=== PATIENT | female | born 1995 | race Caucasian/White ===

== ENCOUNTER 2022-11-16 01:10 | Emergency (ER) | payer MEDICAID, SELFPAY ==
[2022-11-16 01:13] VITALS: BP 130/80; PULSE 90; RESP 18; TEMP 36.8; O2SAT 98; BMI 39.9
--- NOTE | 2022-11-16 01:16 | ECG_ITS ---
Test Reason : CHEST PAIN Blood Pressure : / mmHG Vent. Rate : 075 BPM Atrial Rate : 075 BPM P-R Int : 170 ms QRS Dur : 078 ms QT Int : 384 ms P-R-T Axes : 052 010 032 degrees QTc Int : 428 ms Normal sinus rhythm Normal ECG No previous ECGs available Referred By: Generic ED Physician Electronically Signed By:LINO RICHARDSON MD
--- NOTE | 2022-11-16 01:27 | ED.CHESTPAIN ---
HPI - Chest Pain General Chief Complaint: Chest Pain Stated Complaint: Chest pain/ dizziness Time Seen by Provider: 11/16/22 01:27 Source: patient Mode of arrival: ambulatory Limitations: no limitations History of Present Illness HPI narrative: 27-year-old female who presents emergency department for evaluation of sudden onset of chest tightness. The patient states that she was getting her 4-month-old baby ready to go to bed when she had a sudden onset of chest pain. She points to the center of her chest. She describes as a tightness. The pain was 5/10 at its worst. Patient states that she had intermittent dizziness which she describes as room spinning. She states the pain is been constant since onset and is now 2/10. The patient states this is 1st episode of this type of pain. The pain does radiate to her back. She denies diaphoresis, nausea, vomiting, shortness of breath or dyspnea on exertion. The patient is x4 months. She is on estrogen control pills. She states that she drove to [place] over the weekend which was approximately 1-1/2 hour trip. She has not had any pain or swelling in her lower or upper extremities but she states that when the pain started she felt like the veins in her upper extremities or popping out. 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 Social history: She denies tobacco, alcohol and drug use. Social History Social History Alcohol intake: never Physical Exam Vital Signs: Vital Signs: Last Vital Signs Temp 98.3 F 11/16/22 01:13 Pulse 90 11/16/22 01:13 Resp 18 11/16/22 01:13 BP 130/80 11/16/22 01:13 Pulse Ox 98 11/16/22 01:13 O2 Del Method Room Air 11/16/22 01:13 BMI result Body Mass Index 39.9 Const: General: cooperative and no acute distress Orientation/consciousness: oriented to person and oriented to place Limitations: no limitations HEENT: Head: Yes normal to inspection, Yes normocephalic and Yes atraumatic Ears: external ears normal General nose exam: Normal external nose present Face and sinus: Yes normal facial exam Mouth: Normal oral and palatal mucosa present Throat: Yes posterior oropharynx normal Eyes: General: appearance normal, both eyes and all related structures Pupils: Equal, round and reactive pupils present Neck: Neck: Yes normal visual inspection, Yes no lymphadenopathy, Yes trachea midline and Yes supple Chest: Chest palpation & inspection: normal inspection of the chest and normal palpation of entire chest wall Resp: Effort & Inspection: normal respiratory effort and able to speak in complete sentences Auscultation: clear to auscultation bilaterally Cardio: Rate: regular rate Rhythm: regular rhythm Heart sounds: S1 normal heart sound present, S2 normal heart sound present and Murmur heart sound present continuous III/ GI: Inspection: Yes normal to inspection Palpation (GI): Soft to palpation, nontender and no guarding Auscultation: normal bowel sounds : General: Yes no CVA tenderness Back/Spine/Pelvis: Back: no CVA tenderness Skin: General skin exam: no rashes or lesions noted Neuro: General: oriented to person and oriented to place Cranial nerves: Yes CN's II-XII intact bilaterally and Yes Equal, round and reactive pupils present Cognition (Neuro): normal cognition Motor exam (neuro): 5/5 motor strength present throughout Extrem: General: Yes normal to inspection Psych: Appearance: grossly normal Speech and movement: Normal speech and movement present Affect: normal affect Attitude: cooperative Thought process: Normal thought process present Thought content: Normal thought content present Medical Decision Making Medical Decision Making MDM Narrative: 27-year-old female x4 months, on estrogen control pills who presents emergency department for evaluation of sudden onset of sternal chest tightness associated with dizziness with onset at 00:30 hours. Patient's vital signs were normal. Physical examination did reveal a continuous heart murmur, patient believes that she may have a VSD but I do not have an echocardiogram on the patient. Patient's extremities were unremarkable. I ordered a CBC, BMP, liver panel, PT/INR, PTT, troponin, EKG. The patient is PERC positive therefore I ordered a D-dimer. Patient's pain was treated with Toradol 15 mg IV I also ordered normal saline IV x1 L. At the end of my shift, the patient's laboratory evaluation is pending therefore the patient's care was turned over to my colleague, Dr. Mendoza. Differential Diagnosis Differential diagnosis includes but is not limited to myocardial infarction, myocardial ischemia, pulmonary embolism, costochondritis, anxiety Admission/Observation Consideration of admission/observation: Escalation of care including admission/observation considered Discharge Plan Discharge Clinical Impression: Chest pain Patient Disposition: Still a Patient
[2022-11-16 01:28] VITALS: BP 104/64; PULSE 80; PULSE 88; RESP 17; TEMP 36.5; O2SAT 96
[2022-11-16 01:53] LABS: Basophils Percent Auto 0.5 % (0-2); Eosinophils Absolute Auto 0.1 X10*3/uL (0.0-0.4); Eosinophils Percent Auto 2.1 % (0-4); Hematocrit 38.6 % (37.0-47.0); Hemoglobin 12.8 g/dl (12.0-16.0); Lymphocytes Absolute Auto 2.6 X10*3/uL (1.2-4.9); Lymphocytes Percent Auto 42.8 % (20-40); MANUAL DIFF FLAG NO; Mean Corpuscular HGB Conc 33.2 g/dl (31.0-35.0); Mean Corpuscular Hemoglobin 27.2 pg (27.0-33.0); Mean Platelet Volume 9.1 fL (9.4-12.3); Monocytes Absolute Auto 0.5 X10*3/uL (0.1-1.2); Monocytes Percent Auto 8.6 % (2-11); Neutrophils Absolute Auto 2.8 x10*3/uL (2.0-8.3); Platelet Count 298 X10*3/uL (160-400); Red Blood Count 4.71 X10*6/uL (4.20-5.50); Red Cell Distribution Width 13.4 % (11.0-16.0); White Blood Count 6.2 X10*3/uL (4.8-10.8)
[2022-11-16] MEDS: 0.9 % Sodium Chloride 1,000 ML 999 ML IV (01:55)
[2022-11-16] MEDS: Ketorolac Tromethamine 15 MG/ML VIAL IVPUSH (01:56)
[2022-11-16 01:59] LABS: Prothrombin Time 11.7 SEC (10.0-13.1)
[2022-11-16 02:00] VITALS: BP 112/62; PULSE 77; RESP 14; O2SAT 98
[2022-11-16 02:01] LABS: D Dimer High Sensitivity 192 NG/ML; Partial Thromboplastin Time 33.5 SEC (26.0-36.4)
[2022-11-16 02:09] LABS: Anion Gap 13 (12-20); Blood Urea Nitrogen 13 mg/dL (9-16); Calcium 9.7 mg/dL (8.4-10.2); Carbon Dioxide 23 mmol/L (22-29); Chloride 108 mmol/L (96-108); Creatinine Clr Calc Pharmacy 128.5; Estimated Glomerular Filt Rate > 60; Glucose Random 99 mg/dL (60-115); Potassium 3.8 mmol/L (3.3-5.1); Sodium 140 mmol/L (135-145)
[2022-11-16 02:10] LABS: Alanine Aminotransferase 12 U/L (0-31); Albumin Level 4.1 g/dL (3.5-5.0); Alkaline Phosphatase 101 U/L (39-117); Aspartate Amino Transferase 17 U/L (5-31); Bilirubin Direct 0.2 mg/dL (0.0-0.5); Bilirubin Total 0.6 mg/dL (0.0-1.0); Total Protein 7.2 g/dL (6.5-8.0)
[2022-11-16 02:17] LABS: Troponin-I High Sensitivity < 2.7 ng/L (<3.5-17.0)
== END 2022-11-16 02:58 | disposition home or self-care (01) ==
PROVIDERS: Emergency Provider Emergency Medicine Emergency Medical Services
DX: R07.89 Other chest pain (principal); R42 Dizziness and giddiness; Z79.899 Other long term (current) drug therapy
CPT/HCPCS: 36415; 80048; 80076; 84484; 85025; 85379; 85610; 85730; 93005; 96374; 99284; 99285; J1885

== ENCOUNTER 2023-01-08 17:53 | Emergency (ER) | payer MEDICAID, SELFPAY ==
--- NOTE | ~2023-01-08 | XR_ITS ---
EXAMINATION: XR SHOULDER, RIGHT CLINICAL INFORMATION: Pain COMPARISON: None available. TECHNIQUE: AP external rotation, Grashey, scapular Y, and axillary views of the right shoulder. FINDINGS: The bones and soft tissues are normal. No fracture. Glenohumeral and acromioclavicular alignment is anatomic with normal joint space. No abnormal soft tissue calcifications. XR/XR shoulder RT min 2V IMPRESSION: Normal right shoulder.
[2023-01-08 18:35] VITALS: BP 149/83; PULSE 89; RESP 16; TEMP 36.8; O2SAT 96; BMI 40.7
--- NOTE | 2023-01-08 18:36 | ED_ITS ---
HPI - Extremity Injury (Upper) General Chief Complaint: Back Pain/Injury Stated Complaint: R shoulder pain Time Seen by Provider: 01/08/23 19:25 Source: patient and family () Mode of arrival: ambulatory Limitations: no limitations History of Present Illness HPI narrative: 27-year-old female who presents emergency department for evaluation of right scapular shoulder pain. The patient states that 5 months prior she was putting her baby in a bassinet when she developed a rubber band snapping like sensation in her right scapular area. She states that since that time she has every 2 weeks she would have pain in her right posterior shoulder/scapular area which she describes as a snapping/electric shock pain. She states that over the past 2 weeks however the pain is become constant and she now has pain that radiates down her right arm . She states that the right arm pain is a tingling sensation with some mild weakness of her arm. Patient states that her PCP is referred her to physical therapy which she is going to start on 01/17/2023. The patient has been taking ibuprofen and Tylenol with some relief for pain. 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 Social history: She denies tobacco, alcohol and drug use. Social History Social History Alcohol intake: never Advance Directives: No Advance Directives Information Provided: Yes Physical Exam Vital Signs: Vital Signs: Last Vital Signs Temp 98.2 F 01/08/23 18:35 Pulse 89 01/08/23 18:35 Resp 16 01/08/23 18:35 BP 149/83 H 08/08/23 18:35 Pulse Ox 96 01/08/23 18:35 O2 Del Method Room Air 01/08/23 18:35 BMI result Body Mass Index 40.7 Vital signs revealed an elevated blood pressure of 149/83 General: Awake, alert in no distress Head: Normocephalic, atraumatic EENT: PERRL, Lids normal, sclera normal, conjunctiva normal, nose normal , ears normal, throat without erythema or exudates Neck: Supple, no adenopathy, trachea midline and nontender, tenderness palpation of the right trapezius muscle Lung: breath sounds symmetric, no wheezing, rales or rhonchi Heart: regular rate and rhythm, normal S1, S2 no murmurs or rubs Extremities: Patient has tenderness palpation of the right deltoid muscle, she also has tenderness palpation of the muscles over the right shoulder blade. She has full range of motion passively with only minimal pain but has increased range of motion with adduction abduction against resistance with less pain with internal external rotation against resistance, her extremities neurovascular intact Skin: no rashes, no lesion, normal color and warmth over the area pain on her right shoulder blade Neuro: Awake, alert, oriented, normal speech, cranial nerves intact, moves all extremities symmetrically Psych: Pleasant, cooperative Course Course Course Narrative: RME - 27 yo right hand dominant female presents to the ER for evaluation of right posterior shoulder pain for the last 5 months. Started while putting her baby down 5 months ago. Described as rubber band snapping sensation that occurs now daily and now radiates down the back into the arm, causing pain and numbness . Has limited ROM and difficulty performing ADLs. Minimal relief with tylenol and ibuprofen. Plan: XR shoulder Medical Decision Making Medical Decision Making [facility] Narrative: 27-year-old female who presents emergency department for evaluation of right neck, right shoulder and right shoulder blade pain x5 months, pain initially occurred after she sat her baby down in a bassinet and describes the pain is a rubber band snapping like sensation. Since that time she had intermittent pain. Over the past 2 weeks however the pain is been constant and now she has pain that radiates down her right arm with weakness of her right arm. The patient's examination did reveal tenderness with palpation of the right trapezius, deltoid and muscles over the right shoulder blade. The pain is worse with adduction and abduction against resistance. Patient's findings are consistent with a tendon injury with tendinitis causing inflammation around the nerves and radicular pain down the right arm. The patient was started on prednisone 40 mg once a day for 7 days and advised to continue taking Tylenol as well for pain. She was advised to apply ice for 15 minutes and then follow this with he for 15 minutes 4 to 6 times a day for the next 3-4 days. She was given printed and verbal instructions and discharged home. Differential Diagnosis Differential Diagnoses: The differential diagnosis associated with the presentation includes Differential diagnosis includes was not limited to bone injury, muscle injury, tendon injury, radicular pain Radiology Impression Discussion of test interpretation with radiology: I have reviewed the radiologist's reading. Radiologist Impression: XR shoulder RT min 2V IMPRESSION: Normal right shoulder. Dictated By:Bryson Franco MD Independent Historian Clinical information obtained from an independent historian. History obtained from or confirmed by: Spouse Chronic Conditions Patient?s care impacted by: Other (Fibromyalgia) Discharge Plan Discharge Clinical Impression: Right shoulder tendinitis Radiculopathy Qualifiers: Spinal region: unspecified Qualified Code(s): M54.10 - Radiculopathy, site unspecified Patient Disposition: Home, Self-Care Instructions: Tendinitis (ED) Additional Instructions: You most likely injured a tendon of your right shoulder /shoulder blade and you now have inflammation of this tendon (this is called tendinitis) Take prednisone 20 mg pills, 2 pills once a day for 7 days. While you are taking prednisone, do not take any NSAIDs (Motrin, Advil, ibuprofen, Aleve, naproxen). While you are taking prednisone you can also take Tylenol 325 mg pills, 2 pills every 6 hours as needed for pain. Apply ice to to right neck, shoulder and shoulder blade were your having the pain for 15 minutes. After approximately 20 minutes then apply a heating pad on low for 15 minutes. Try to do this 4 times a day to see if this reduces your pain. After you finish the prednisone you can go back to taking ibuprofen 200 mg pills, 2 pills every 6 hours as needed for pain. Physical therapy may help with stretching and strengthening exercises to reduce your pain. Follow-up with your doctor in 2 days. Please return to the emergency department if your symptoms get worse or if you develop any symptoms that are concerning to you. Prescriptions: New prednisone 20 mg tablet 40 mg PO DAILY 7 Days Qty: 14 0RF No Action ibuprofen 600 mg tablet 600 mg PO Q6H PRN (Reason: fever or pain) Qty: 30 0RF
[2023-01-08] MEDS: predniSONE 20 MG TABLET 40 MG PO (20:07)
[2023-01-08 20:15] VITALS: BP 120/59; PULSE 75; RESP 18; O2SAT 97
== END 2023-01-08 20:20 | disposition home or self-care (01) ==
PROVIDERS: Emergency Provider Emergency Medicine Emergency Medical Services; PCP Physician Assistant
DX: M75.31 Calcific tendinitis of right shoulder (principal); M54.10 Radiculopathy, site unspecified; M79.7 Fibromyalgia
CPT/HCPCS: 73030; 99283; 99284

== ENCOUNTER 2023-11-16 10:02 | Emergency (ER) | payer MEDICAID, SELFPAY ==
--- NOTE | ~2023-11-16 | XR_ITS ---
EXAMINATION: XR TOES, LEFT CLINICAL INFORMATION: Left great toe pain/injury. COMPARISON: None available. TECHNIQUE: 3 views of the left toes were obtained. FINDINGS: No fracture or subluxation. No discrete focal erosive changes, cortical disruption or focal lucency to suspect osteomyelitis by radiograph. Diffuse nonspecific soft tissue swelling. No unexpected radiopaque foreign bodies. XR/XR toe LT min 2V IMPRESSION: Diffuse soft tissue swelling. No acute osseous findings.
[2023-11-16 10:15] VITALS: BP 138/62; PULSE 84; RESP 16; TEMP 37; O2SAT 98; BMI 38.3
--- NOTE | 2023-11-16 10:23 | ED.LOWEXIN ---
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 States toe bent backwards, and her body weight landed on foot. Has been minimally ambulatory since the incident secondary to pain. Denies head trauma or LOC, numbness, tingling, weakness. 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 Difficulty Uncoded 11/16/22 01:17 Breathing Review of Systems Review of Systems: Constitutional: No Fever, No Chills ENT/Mouth: No Ear Pain, No Nasal Congestion, No sore throat, No Rhinorrhea, No Swallowing Difficulty Cardiovascular: No Chest Pain, No SOB Respiratory: No Cough, No Sputum, No Wheezing Gastrointestinal: No Nausea, No Vomiting, No Diarrhea, No Constipation, No Abdominal pain Musculoskeletal: + joint pain, No Myalgias, +Joint Swelling Skin: No Skin Lesions, No rash Neuro: No Weakness, No Numbness, No Paresthesias, no head trauma, no LOC Yes all other systems are reviewed and are negative Constitutional: Constitutional: Reports as per [facility] Past Medical History Attestation statement: The following information was validated with the patient. Source: old records reviewed Social History Social History Alcohol intake: never Advance Directives: No Advance Directives Information Provided: Yes Physical Exam Vital Signs: Vital Signs: Last Vital Signs Temp 98.0 F 11/16/23 11:50 Pulse 71 11/16/23 11:50 Resp 16 11/16/23 11:50 BP 107/61 11/16/23 11:50 Pulse Ox 95 11/16/23 11:50 O2 Del Method Room Air 11/16/23 11:50 BMI result Body Mass Index 38.3 Const: General: cooperative, healthy appearing and no acute distress Orientation/consciousness: patient oriented x3 Limitations: no limitations HEENT: Head: Yes normal to inspection and Yes atraumatic Ears: hearing grossly normal bilaterally General nose exam: Normal external nose present Face and sinus: Yes normal facial exam Eyes: General: appearance normal, both eyes and all related structures EOM: EOMs intact bilaterally Neck: Neck: Yes normal visual inspection and Yes no meningeal signs Resp: Effort & Inspection: normal respiratory effort and no respiratory distress Cardio: Rate: regular rate Skin: Rashes: no rashes Wounds: no wounds Neuro: General: patient oriented x3, tone normal and no meningeal signs Cranial nerves: Yes CN's II-XII intact bilaterally Gait exam (Neuro): Normal gait present Extrem: Other: Left foot: Dorsal aspect with appreciable swelling and diffuse tenderness > great toe. Limited ROM of great toe secondary to pain. No ecchymosis/erythema. Neurovascularly intact. Ankle/tib-fib and knee nontender Course Course Course Narrative: 1107--XR toe LT min 2V IMPRESSION: Diffuse soft tissue swelling. No acute osseous findings. >AYAN wrap applied. Results discussed with patient including worrisome signs and symptoms and strict return precautions, and when to return to the emergency department. They verbalized understanding and feel safe for discharge at this time. 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 On exam vital signs stable, NAD, nontoxic appearing, physical exam as noted above. Concern for fracture vs sprain. Lower suspicion for dislocation. No evidence of infection plan: X-rays, pain control Please refer to course for remaining clinical decision making, interpretation of labs/imaging results, and discussions with consultants and/or family members. Differential Diagnosis Differential Diagnoses: The differential diagnosis associated with the presentation includes As above Independent Interpretation I performed an independent interpretation of an: Plain X-Ray Radiology Impression Discussion of test interpretation with radiology: I have reviewed the radiologist's reading. External Record Review External record reviewed: Inpatient record, Office record, Outpatient record, Prior outpatient labs, Prior outpatient radiology, Primary care record and Outside ED record Tests considered The following testing was considered but not selected: As above Prescription Management I considered prescription management with: Pain Medication Discharge Plan Discharge Clinical Impression: Hyperextension of great toe, Foot sprain Patient Disposition: Home, Self-Care Instructions: Foot Sprain (ED) Additional Instructions: Your x-rays do not show a fracture/break Ice and elevate your foot Wear Ayan wrap for compression Take Tylenol and Motrin for pain/swelling Follow-up with your doctor If pain persist or worsen/becomes unbearable return to the ED Prescriptions: No Action ibuprofen 600 mg tablet 600 mg PO Q6H PRN (Reason: fever or pain) Qty: 30 0RF prednisone 20 mg tablet 40 mg PO DAILY 7 Days Qty: 14 0RF Referrals: [facility] [Provider Group] (as needed) Physician,Unknown J [Primary Care Provider] - Interventions: ED Discharge Assessment Last Done: 11/16/23 11:50 Discharge Date/Time: 11/16/23 11:51 Print Language: Slovak
[2023-11-16] MEDS: Ibuprofen 800 MG TABLET PO (10:41)
[2023-11-16 11:50] VITALS: BP 107/61; PULSE 71; RESP 16; TEMP 36.7; O2SAT 95
== END 2023-11-16 11:51 | disposition home or self-care (01) ==
PROVIDERS: Emergency Provider Emergency Medicine Emergency Medical Services
DX: S93.602A Unspecified sprain of left foot, initial encounter (principal); W01.0XXA Fall on same level from slipping, tripping and stumbling without subsequent striking against object, initial encounter; Y93.89 Activity, other specified; Y92.009 Unspecified place in unspecified non-institutional (private) residence as the place of occurrence of the external cause; Y99.9 Unspecified external cause status
CPT/HCPCS: 73660; 99283

== ENCOUNTER → 2025-01-06 00:56 | Outpatient (BNV) | payer MEDICAID, SELFPAY | PROVIDERS: Visit Provider Radiology Diagnostic Radiology | DX: R06.02 Shortness of breath (principal) | CPT/HCPCS: 71046 ==

== ENCOUNTER 2025-01-06 01:23 | Emergency (ER) | payer MEDICAID, SELFPAY ==
--- NOTE | 2025-01-06 | ECG_ITS ---
Test Reason : CP Blood Pressure : */* mmHG Vent. Rate : 77 BPM Atrial Rate : 77 BPM P-R Int : 150 ms QRS Dur : 76 ms QT Int : 372 ms P-R-T Axes : 51 9 36 degrees QTcB Int : 420 ms Normal sinus rhythm Normal ECG When compared with ECG of 16-Nov-2022 01:20, No significant change was found Referred By: Generic ED Physician Electronically Signed By: PATRICIA HERNANDEZ
--- NOTE | ~2025-01-06 | XR_ITS ---
CLINICAL HISTORY: chest pain, sob Chest X-ray, 2 Views COMPARISON: None provided FINDINGS: No consolidation. No pleural effusion. No pneumothorax. No cardiomegaly. No acute fracture. IMPRESSION: No acute findings. This document has been electronically signed by: Fahrat Hawthorne MD on 01/06/2025 02:31:09
[2025-01-06 01:25] VITALS: BP 133/79; PULSE 91; RESP 20; TEMP 36.7; O2SAT 100; BMI 37.4
[2025-01-06 01:54] LABS: Hematocrit 40.1 % (37.0-47.0); Hemoglobin 13.7 g/dl (12.0-16.0); Mean Corpuscular HGB Conc 34.2 g/dl (31.0-35.0); Mean Corpuscular Hemoglobin 27.8 pg (27.0-33.0); Mean Corpuscular Volume 81.3 fL (80.0-98.0); NRBC Abs Auto 0.000 X10*3/uL (0.0-0.012); NRBC Pct Auto 0.0 /100WBC (0.0-0.2); Platelet Count 313 X10*3/uL (160-400); Red Blood Count 4.93 X10*6/uL (4.20-5.50); White Blood Count 7.6 X10*3/uL (4.8-10.8)
[2025-01-06 02:11] LABS: Alanine Aminotransferase 17 U/L (0-31); Albumin Level 4.1 g/dL (3.5-5.0); Alkaline Phosphatase 99 U/L (39-117); Anion Gap 12 (12-20); Aspartate Amino Transferase 25 U/L (5-31); Blood Urea Nitrogen 11 mg/dL (9-16); Calcium 9.2 mg/dL (8.4-10.2); Carbon Dioxide 23 mmol/L (22-29); Chloride 109 mmol/L (96-108); Creatinine Clr Calc Pharmacy 107.4; Estimated Glomerular Filt Rate > 60; Magnesium 2.0 mg/dL (1.6-2.6); Potassium 3.9 mmol/L (3.3-5.1); Sodium 140 mmol/L (135-145); Total Protein 7.3 g/dL (6.5-8.0)
[2025-01-06 02:23] LABS: Troponin-I High Sensitivity < 2.7 ng/L (<3.5-17.0)
--- NOTE | 2025-01-06 02:23 | ED_ITS ---
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 Difficulty Uncoded 01/06/25 01:34 Breathing PMFSH Social History Social History Alcohol intake: never Advance Directives: No Advance Directives Information Provided: Yes Physical Exam 2 Vital Signs: Vital Signs: Last Vital Signs Temp 98.7 F 01/06/25 05:22 Pulse 69 01/06/25 05:22 Resp 14 01/06/25 05:22 BP 106/60 01/06/25 05:22 Pulse Ox 96 01/06/25 05:22 O2 Del Method Room Air 01/06/25 05:22 BMI result Body Mass Index 37.4 Medical Decision Making Lab Data 01/06/25 01:48 01/06/25 01:48 Labs: Lab Results 01/06/25 Range/Units 01:48 WBC 7.6 (4.8-10.8) X10*3/uL RBC 4.93 (4.20-5.50) X10*6/uL Hgb 13.7 (12.0-16.0) g/dl Hct 40.1 (37.0-47.0) % MCV 81.3 (80.0-98.0) fL MCH 27.8 (27.0-33.0) pg MCHC 34.2 (31.0-35.0) g/dl RDW 13.3 (11.0-16.0) % Plt Count 313 (160-400) X10*3/uL MPV 9.4 (9.4-12.3) fL Absolute Nucleated RBC 0.000 (0.0-0.012) X10*3/uL Nucleated RBC % (auto) 0.0 (0.0-0.2) /100WBC Sodium 140 (135-145) mmol/L Potassium 3.9 (3.3-5.1) mmol/L Chloride 109 H (96-108) mmol/L Carbon Dioxide 23 (22-29) mmol/L Anion Gap 12 (12-20) BUN 11 (9-16) mg/dL Creatinine 0.85 (0.5-1.4) mg/dL Estim Creat Clear Calc 107.4 Estimated GFR > 60 Random Glucose 119 H (60-115) mg/dL Calcium 9.2 (8.4-10.2) mg/dL Magnesium 2.0 (1.6-2.6) mg/dL Total Bilirubin 0.5 (0.0-1.0) mg/dL AST 25 (5-31) U/L ALT 17 (0-31) U/L Alkaline Phosphatase 99 (39-117) U/L Troponin I High Sens < 2.7 (<3.5-17.0) ng/L Total Protein 7.3 (6.5-8.0) g/dL Albumin 4.1 (3.5-5.0) g/dL Influenza Type A (PCR) NEGATIVE (Negative) Influenza Type B (PCR) NEGATIVE (Negative) RSV RNA Qual (PCR) NEGATIVE (Negative) SARS-CoV-2 RNA (RT-PCR) NEGATIVE (Negative) Discharge Plan Discharge Prescriptions: No Action ibuprofen 600 mg tablet 600 mg PO Q6H PRN (Reason: fever or pain) Qty: 30 0RF prednisone 20 mg tablet 40 mg PO DAILY 7 Days Qty: 14 0RF Print Language: Mauritian
[2025-01-06 02:31] LABS: Resp Syncy Virus RNA Qual PCR NEGATIVE (Negative); SARS COV2 PCR INHOUSE NEGATIVE (Negative)
[2025-01-06 05:22] VITALS: BP 106/60; PULSE 69; RESP 14; TEMP 37.1; O2SAT 96
--- NOTE | 2025-01-06 06:06 | ED.CHESTPAIN ---
HPI - Chest Pain General Chief Complaint: Chest Pain Stated Complaint: Dizziness Time Seen by Provider: 01/06/25 05:42 Source: patient Mode of arrival: ambulatory Limitations: no limitations History of Present Illness ED Provider: Dr. Nikki Mares HPI narrative: 29-year-old female with history of some type of congenital heart defect not currently on any medications presenting with lightheadedness and palpitations, left shoulder pain ongoing since taking a shower about an hour prior to arrival. States that she was standing in the shower when she began to feel dizzy and lightheaded. [place] a ?pulling sensation in her left shoulder?. Pain radiated into the chest and has not improved since arriving in the emergency department. She did not lose consciousness. Was able to sit down and feel better. Admits to poor oral intake over the last couple of days. No reported fever. No cough or cold-type symptoms. Patient denies nausea or vomiting, abdominal pain, numbness or tingling of the extremities, lower extremity pain or swelling, family history of early onset coronary artery disease or sudden cardiac . 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 [facility] Social History Social History Alcohol intake: never Advance Directives: No Advance Directives Information Provided: Yes Physical Exam Exam: Exam: GENERAL: Ill-Appearing, appears uncomfortable. SKIN: Normal skin color for ethnicity, warm, dry, no rashes noted. HEENT:? Normocephalic, atraumatic, no stridor, dry mucous membranes, dentition intact, EOMI. NECK: Soft, supple, full ROM, midline structures nontender, no step-offs, no deformities, no lymphadenopathy. CHEST: Heart regular rhythm, no murmurs, symmetric chest rise and fall. PULMONARY: Clear to auscultation bilaterally, diminished at the bases, no labored breathing, no wheezes/rhales/rhonchi. ABDOMINAL: Soft, nondistended, nontender, positive bowel sounds in all quadrants. : Deferred. MUSCULOSKELETAL: Normal tone, full range of motion, no deformities, no peripheral edema. NEURO: Alert and oriented x3, CN II through XII intact, equal strength and sensation bilateral upper and lower extremities, no focal neurologic deficits.? PSYCHIATRIC: Flat affect, fluid speech, good eye contact and appropriate demeanor. Vital Signs: Vital Signs: Last Vital Signs Temp 98.7 F 01/06/25 06:27 Pulse 69 01/06/25 06:27 Resp 14 01/06/25 06:27 BP 106/60 01/06/25 06:27 Pulse Ox 96 01/06/25 06:27 O2 Del Method Room Air 01/06/25 06:27 BMI result Body Mass Index 37.4 Medications Administered Discontinued Medications Generic Name Dose Route Start Last Admin Trade Name Keithq PRN Reason Stop Dose Admin Acetaminophen/Butalbital/Caffeine 1 tab 01/06/25 06:02 01/06/25 06:08 Butalb/Acetamin/Caff 50/325/40 Tablet PO 01/06/25 06:03 1 tab ONCE ONE Administration Medical Decision Making Medical Decision Making [facility] Narrative: Patient presents today with a chief complaint of dizziness, palpitations. Differential diagnosis is extremely broad and includes posterior circulation deficits causing vestibular basilar symptoms, anemia, hypovolemia, middle or inner ear problems, intracranial abnormality such as stroke bleed or tumor, electrolyte abnormalities, cardiac arrhythmia, hypoxia, among many others. This patient does not have any focal neurological findings at this time. PERC negative. HEART score 0. Clinical picture consistent with dehydration and near syncope. Using shared decision making, plan for discharge home to follow-up with primary care and/or specialist.? Patient understands and agrees with plan for discharge.? Discharged home in stable condition. Differential Diagnosis Differential Diagnoses: The differential diagnosis associated with the presentation includes (as above) Admission/Observation Consideration of admission/observation: Escalation of care including admission/observation considered Lab Data [facility] Lab Attestation statement: I reviewed the patient's lab results. 01/06/25 01:48 01/06/25 01:48 Labs: Lab Results 01/06/25 Range/Units 01:48 WBC 7.6 (4.8-10.8) X10*3/uL RBC 4.93 (4.20-5.50) X10*6/uL Hgb 13.7 (12.0-16.0) g/dl Hct 40.1 (37.0-47.0) % MCV 81.3 (80.0-98.0) fL MCH 27.8 (27.0-33.0) pg MCHC 34.2 (31.0-35.0) g/dl RDW 13.3 (11.0-16.0) % Plt Count 313 (160-400) X10*3/uL MPV 9.4 (9.4-12.3) fL Absolute Nucleated RBC 0.000 (0.0-0.012) X10*3/uL Nucleated RBC % (auto) 0.0 (0.0-0.2) /100WBC Sodium 140 (135-145) mmol/L Potassium 3.9 (3.3-5.1) mmol/L Chloride 109 H (96-108) mmol/L Carbon Dioxide 23 (22-29) mmol/L Anion Gap 12 (12-20) BUN 11 (9-16) mg/dL Creatinine 0.85 (0.5-1.4) mg/dL Estim Creat Clear Calc 107.4 Estimated GFR > 60 Random Glucose 119 H (60-115) mg/dL Calcium 9.2 (8.4-10.2) mg/dL Magnesium 2.0 (1.6-2.6) mg/dL Total Bilirubin 0.5 (0.0-1.0) mg/dL AST 25 (5-31) U/L ALT 17 (0-31) U/L Alkaline Phosphatase 99 (39-117) U/L Troponin I High Sens < 2.7 (<3.5-17.0) ng/L Total Protein 7.3 (6.5-8.0) g/dL Albumin 4.1 (3.5-5.0) g/dL Beta HCG, Quant < 2 mIU/mL Influenza Type A (PCR) NEGATIVE (Negative) Influenza Type B (PCR) NEGATIVE (Negative) RSV RNA Qual (PCR) NEGATIVE (Negative) SARS-CoV-2 RNA (RT-PCR) NEGATIVE (Negative) Independent Interpretation I performed an independent interpretation of an: Plain X-Ray Interpretation: My independent interpretation of the chest x-ray reveals no consolidations, pulmonary edema, pleural effusion, pneumothorax, obvious bony abnormalities. Radiology Impression Discussion of test interpretation with radiology: I have reviewed the radiologist's reading. Chronic Conditions Patient?s care impacted by: Other (congenital heart defect) Discharge Plan Discharge Clinical Impression: Atypical chest pain, Vasovagal near syncope Patient Disposition: Home, Self-Care Instructions: Near Syncope (ED), Noncardiac Chest Pain (ED) Additional Instructions: Continue to force your fluids over the next several days. Drink plenty of water and electrolyte solutions. Return to the emergency department with any new or worsening symptoms including: Worsening chest pain, difficulty breathing, fevers greater than 100?, any new symptom concerns you. Call 911 with any medical emergency. Prescriptions: No Action ibuprofen 600 mg tablet 600 mg PO Q6H PRN (Reason: fever or pain) Qty: 30 0RF prednisone 20 mg tablet 40 mg PO DAILY 7 Days Qty: 14 0RF Interventions: ED Discharge Assessment Last Done: 01/06/25 06:27 Discharge Date/Time: 01/06/25 06:27 Print Language: Bahraini
[2025-01-06] MEDS: Butalb/Acetamin/Caff 50/325/40 TABLET 1 TAB PO (06:08)
[2025-01-06 06:27] VITALS: BP 106/60; PULSE 69; RESP 14; TEMP 37.1; O2SAT 96
== END 2025-01-06 06:27 | disposition home or self-care (01) ==
PROVIDERS: Emergency Provider Emergency Medicine
DX: R07.89 Other chest pain (principal); R42 Dizziness and giddiness; R55 Syncope and collapse; Z03.818 Encounter for observation for suspected exposure to other biological agents ruled out
CPT/HCPCS: 36415; 71046; 80053; 83735; 84484; 84702; 85027; 87637; 93005; 99283; 99284

== ENCOUNTER → 2025-01-06 01:33 | Outpatient (BNV) | payer MEDICAID, SELFPAY | PROVIDERS: Emergency Provider Emergency Medicine; Visit Provider Internal Medicine | DX: R07.9 Chest pain, unspecified (principal) | CPT/HCPCS: 93010 ==

== ENCOUNTER 2025-05-27 23:52 | Emergency (ER) | payer MEDICAID, SELFPAY ==
[2025-05-27 23:57] VITALS: BP 127/58; PULSE 121; RESP 16; TEMP 36.9; O2SAT 96; BMI 36.4
--- OUTSIDE RECORDS SUMMARY | 2025-05-28 00:33 | XMS_ITS | Patient Health Record ---
Author Organization [facility] Address [address] [place] [address] Care Team Providers Care Team Supervisor Name Role Phone Juliano Jonesert Primary Care Provider Reason For Referral No Information Medications Medication SIG (Take, Route, Frequency, Duration) Notes Start Date End Date Status DULOXETINE HCL DR 30 MG CAP 180 Take 2 caps qam; Duration: 90 *please review for potential update for e-prescription and drug interaction check* 02/28/[address] 30 MG CAP 60 1 cap qam x 1 or 2 weeks, then 2 caps qam *please review for potential update for e-prescription and drug interaction check* 12/25/2017 Active Plan Of Treatment No Information Insurance Providers Payer Name Payer Address Payer Phone Subscriber Number Group Number Insured Name Patient Relationship to Insured Coverage Start Date Coverage End Date [employer] [address] [place] [id number] Jessi Acevedo Self - patient is the insured [employer] PL[employer] POS [address] [place] [phone] [id number] Jessi Acevedo Self - patient is the insured
--- OUTSIDE RECORDS SUMMARY | 2025-05-28 00:33 | XMS_ITS ---
Author Name [facility] Organization Unknown History of Medication Use Medication Directions Dispensed Refills Start Date End Date Stat hydrocortisone 1 % topical cream with perineal applicator APPLY TO AFFECTED AREA 3 TIMES A DAY APPLY TO AFFECTED AREA 3 TIMES A DAY 02/10/2025 completed acetaminophen 500 mg tablet 1 Tab PO PRN for pain 1 Tab PO PRN for pain completed aspirin 325 mg tablet 2 Tabs PO PRN for pain 2 Tabs PO PRN for pain completed ferrous sulfate 28 mg iron tablet 1 tablespoon PO QD 1 tablespoon PO QD completed multivitamin 1 Tab PO QD 1 Tab PO QD completed Allergies Allergen Reaction Severity Comment Documented Date Source Statu s RED DYE _PCMD Encounters Encounter Type Encounter Reason Primary Diagnosis Location Date Ambulatory [facility] 02/10/2025 Ambulatory [facility] 01/07/2025 Care Team Organization Name Specialty Phone Email Start Date End Da [facility] 01/10
--- OUTSIDE RECORDS SUMMARY | 2025-05-28 00:33 | XMS_ITS | Encounter Summary ---
Author Organization [facility] Address [facility] hospital [facility] [address] [place] [phone] Phone Care Team Providers Care Merchant Seaman Name Role Phone Campbell Eddy MD Primary Care Provider [phone] Tyrone Scott MD Unavailable Encounter Details Date Type Department Care Team (Late st Contact Info) Description 05/15/2023 Procedure Pass [facility] [address] [place] [address] Social History Tobacco Use Types Packs/Day Years Used Date Smoking Tobacco: Never Smokeless Tobacco: Never Alcohol Use Standard Drinks/Week Comments Not Currently 0 (1 standard drink = 0.6 oz pur e alcohol) Education Answer Date Recorded Are you interested in more education? Not on lydia e 09/28/2022 Are you concerned about learning? Not on file 09/28/2022 No 09/28/2022 No 09/28/2022 Digital Access Answer Date Recorded No 10/24/2022 No 10/24/2022 Reliable internet access at home? Not on file 10/24/2022 Device with a working camera? Not on file Intimate Partner Violence Answer Date R ecorded Are you denied basic needs s uch as food, clothing, or medical care? No 07/12/2022 In the past 12 months have y ou been in a relationship with a person who hurts, threatens, or tries to control you? No 07/12/2022 Are you denied basic needs s uch as food, clothing, or medical care? No 07/12/2022 In the past 12 months have y ou been in a relationship with a person who hurts, threatens, or tries to control you? No 07/12/2022 Comments No Sex and Gender Information Value Date Recorded Sex Assigned at Female 07/12/2022 8:20 PM EST Legal Sex Female 8:52 PM EDT Gender Identity Female 07/12/2022 8:20 PM EST Sexual Orientation Bisexual 07/12/2022 8: 20 PM EST documented as of this encounter Plan of Treatment Upcoming Encounters Date Type Department Care Team (Late st Contact Info) Description 06/01/2025 9:30 AM EST Appointment [facility] [address] [place] [address] Paz Ruano PA [address] [place] [address] documented as of this encounter Visit Diagnoses Not on filedocumented in this encounter Care Teams Merchant Seaman Relationship Specialty Start Date End Date Campbell Eddy MD [address] [place] [phone] [email or web address] PCP - General 03/19/17 Tyrone Scott MD [address] [place] [address] [email or web address] Insurance Assigned Provider 04/17/25 documented as of this encounter Additional Source Comments The information contained in this document represents components of the legal health record. It is not the complete legal health record.[facility]
--- OUTSIDE RECORDS SUMMARY | 2025-05-28 00:33 | XMS_ITS | Encounter Summary ---
Author Organization [facility] Address [facility] [address] [place] [phone] Phone Care Team Providers Care Medical Billing And Coding Instructor Name Role Phone Campbell Eddy MD Primary Care Provider [phone] Tyrone Scott MD Unavailable [phone] Encounter Details Date Type Department Care Team (Late st Contact Info) Description 03/05/2023 Procedure Pass [facility] [address] [place] [address] Social History Tobacco Use Types Packs/Day Years [...] AM EST Appointment [facility] [address] [place] [address] Paz Ruano PA [address] [place] [address] documented as of this encounter Visit Diagnoses Not on filedocumented in this encounter Care Teams Medical Billing And Coding Instructor Relationship Specialty Start Date End Date Campbell Eddy MD [address] [place] [phone] [email or web address] PCP - General 03/19/17 Tyrone Scott MD [address] [place] [phone] [email or web address] Insurance Assigned Provider 04/17/25 documented as of this encounter Additional Source Comments The information contained in this document represents components of the legal health record. It is not the complete legal health record.[facility]
--- OUTSIDE RECORDS SUMMARY | 2025-05-28 00:33 | XMS_ITS | Clinical Summary ---
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 02/17/2025 4:13 PM EDT Plan of Treatment Upcoming Encounters Date Type Department Care Team (Late st Contact Info) Description 06/01/2025 9:30 AM EST Appointment [facility] [address] [place] [address] Paz Ruano PA [address] [place] [address] [phone] Health Maintenance Due Date Last Done Comments DEPRESSION SCREENING 2007 INFLUENZA VACCINE (#1) 2025 COVID-19 VACCINE ( season) 2025 PAP SMEAR 03/03/2027 03/03/2024, 03/31/2021 Adult Td,Tdap Booster 05/02/2028 05/02/2018, 008 HIB VACCINES Completed 07/30/1996, 11/1995, 1995, Additional history exists PNEUMOCOCCAL VACCINES (0-49 years) Aged Out 07/25/2000 No longer eligible based on patient's age to complete this topic HEPATITIS C SCREENING Completed 12/20/2021 , 12/20/2021, 12/20/2021 HIV ONE-TIME SCREENING (18-65 YEARS) Completed 12/20/2021 SMOKING STATUS SCREENING (Once After 26 Yrs) Completed 02/17/2025 HEPATITIS A VACCINES Aged Out No long er eligible based on patient's age to complete this topic MENINGOCOCCAL VACCINES (ACWY) Aged Out No longer eligible based on patient's age to complete this topic MENINGOCOCCAL VACCINES (B) Aged Out N o longer eligible based on patient's age to complete this topic Medical Devices Not on file Procedures Procedure Name Priority Date/Time Associated Diagnosis Comments PAP TEST Routine 03/03/2024 12:00 AM EDT HEPATITIS C ANTIBODY, QUALITATIVE Routine 12/20/2021 3:32 PM EDT Need for hepatitis C screening test from Last 3 Months or Most Recently Relevant to Health Maintenance Results * Pap Test (03/03/2024 12:00 AM EDT) [place] [address] Ore Trimmer: Nav Solis MD PLANT SCIENTIST Cytology Report FINAL DIAGNOSIS A. PAP SMEAR (THIN PREP) CE: SPECIMEN ADEQUACY: Satisfactory for evaluation; transformation zone present. INTERPRETATION: NEGATIVE FOR INTRAEPITHELIAL LESION OR MALIGNANCY. This specimen was analyzed by the automated ThinPrep Imaging System ([employer].) and the selected coto were reviewed by a box spinner. Electronically Signed Out By: EV Gordon(ASCP) The Pap test is a screening test primarily for squamous cancers and precursors and has associated false-negative and false-positive results. New technologies such as liquid-based preparations may decrease but will not eliminate all false-negative results. Regular sampling and follow-up of unexplained clinical signs and symptoms are recommended to minimize false negative results. PROCEDURES/ADDENDA HPV Testing (Requested) Ordered Date: 03/04/2024 A. PAP SMEAR (THIN PREP) CE: Human Papilloma Virus Test NEGATIVE for high-risk Human Papilloma Virus types 16, 18, 45 and the Other high risk probe set (Includes 31, 33, 35, 39, 51, 52, 56, 58, 59, 66, 68) Note: Testing performed by [employer] HR-HPV analysis. Clinical correlation is advised. This HPV test was performed at [facility], [address] [place] [address]. This test has been FDA approved for both SurePath and ThinPrep cervical cytology specimens. The accuracy and precision of this test for all other specimen sources has been verified in the Cytopathology Laboratory of the [facility] and has not been cleared or approved by the U.S. Food and Drug Administration. Clinical correlation is advised. CLINICAL HISTORY Date of Last Menstrual Period: Not Provided Menstrual History: Unknown Other Clinical Conditions: Screening Pap SPECIMEN SOURCE A: PAP SMEAR (THIN PREP) CE Patient Name: JESSI VALLEJO : 1995 (Age: 28) Sex: F Institution: [facility] Location: [facility] Date of Collection: 03/03/2024 Date of Reported: 03/06/2024 15:19 Results to: Meredith Soriano [facility] Final Diagnosis A. PAP SMEAR (THIN PREP) CE: SPECIMEN ADEQUACY: Satisfactory for evaluation; transformation zone present. INTERPRETATION: NEGATIVE FOR INTRAEPITHELIAL LESION OR MALIGNANCY. This specimen was analyzed by the automated ThinPrep Imaging System ([employer].) and the selected coto were reviewed by a box spinner. [facility] Results\Inter pretation A. PAP SMEAR (THIN PREP) CE: Human Papilloma Virus TestNEGATIVE for high-risk Human Papilloma Virus types 16, 18, 45 and the Other high risk probe set (Includes 31, 33, 35, 39, 51, 52, 56, 58, 59, 66, 68)Note: Testing performed by [employer] HR-HPV analysis. Clinical correlation is advised. This HPV test was performed at [facility], [address] [place] [address]. This test has been FDA approved for both SurePath and ThinPrep cervical cytology specimens. The accuracy and precision of this test for all other specimen sources has been verified in the Cytopathology Laboratory of the [facility] and has not been cleared or approved by the U.S. Food and Drug Administration. Clinical correlation is advised. [facility] Conversion Type (Conversion Source) 03/03/2024 03/04/2024 9:50 AM EDT Meredith OCSTA CYTOLOGY ORDERABLE S Edited Result - Final [address] [address] * Hepatitis C antibody, qualitative (12/20/2021 3:32 PM EDT) HCV NON-REACTIV E NON-REACTI VE [facility] Blood 12/20/2021 3:32 PM EDT 12/20/2021 3:50 PM EDT us Letty Wasserman CNM LAB BLOOD BKR ORDERABL ES Final Result Performing Organization Address [facility]/ZIP Co de Phone Number [address] [address] from Last 3 Months or Most Recently Relevant to Health Maintenance Insurance [facility] [place] [id number] [facility] [place] [address] [address] [place] [address] ACO [facility] Advance Directives For more information, please contact: [phone] (9AM - 5PM Trisha/[facility], Saturday-Saturday) Documents on File Type Date Recorded Patient Talent Analyst Expl anation Healthcare Proxy 07/18/2022 1:02 PM * Full Code (Latest Code Status on File) Date Activated Date Inactivated Comments 07/15/2022 6:24 AM Question Answer Comments Code Status Confirmed With: Patient * Full Code Date Activated Date Inactivated Comments 07/12/2022 9:08 PM 07/15/2022 6:24 AM Question Answer Comments Code Status Confirmed With: Patient Care Teams Double Surface Operator Relationship Specialty Start Date End Date Campbell Eddy MD [address] [place] [phone] [email or web address] PCP - General 10/17/17 Tyrone Scott MD [address] [place] [phone] [email or web address] Insurance Assigned Provider 04/17/25 Additional Source Comments The information contained in this document represents components of the legal health record. It is not the complete legal health record.[facility]
--- OUTSIDE RECORDS SUMMARY | 2025-05-28 00:34 | XMS_ITS | Data Portability ---
Author Organization MD Jake BOSTON [place] [facility] Address [address] [facility] [address] [place] [address] Care Team Providers Care Plant Pathology Teacher Name Role Phone NATE MURPHY Primary Care Provider Assessment No assessment recorded. Plan of Treatment Reminders Order Date Submit Date Provider Last Modified By Organization Details Last Modified Time Details Appointments None record ed. Lab None record ed. Referral None record ed. Procedures None record ed. Surgeries None record ed. Imaging None record ed. Medication Orders None record ed. Patient TargetsNo targets recorded. Patient InstructionsNo instructions recorded. Reason for Referral None Reported. Procedures Surgical History Date Name Laterality Status Provider Name and Address Organization Details Recorded Time adenoid excision completed Lance Posey MD [facility] 02/10/2025 07:47:34 Tonsillectomy completed Lance Posey MD [facility] 02/10/2025 07:47:41 extraction of wisdom tooth completed Lance Posey MD [facility] 02/10/2025 07:47:46 Imaging Results None recorded. Procedure Notes None recorded. Medical Equipment None Reported. Allergies Allergen ID Allergen Name Allergen Category Reaction Reaction Severity Criticality Documentation Date Start Date Code Code System Note Provider Name and Address Organization Details Recorded Time 06991 red dye food,medi cation Not available Not available [facility] 02/10/2025 Lance meek MD [facility] 07:45:40 Medications Name Sig Start Date Stop Date Status Note LastModified by Organization Details LastModified Time aspirin 325 mg tablet 2 Tabs PO PRN for pain active Not Available Not Available No t Available acetaminoph en 500 mg tablet 1 Tab PO PRN for pain active Not Available Not Available No t Available magnesium 250 mg tablet 1 Tab PO QD active Not Available Not Available No t Available hydrocortis one 1 % topical cream with perineal applicator APPLY TO AFFECTED AREA 3 TIMES A DAY 02/10 completed Not Available Not Available Not Available multivitami n 1 Tab PO QD active Not Available Not Available No t Available ferrous sulfate 28 mg iron tablet 1 tablespoo n PO QD active Not Available Not Available No t Available Tri-Estaryl la (28) 0.18 mg(7)/0.215 mg(7)/0.25 mg(7)-0.035 mg tablet TAKE 1 TABLET BY MOUTH EVERY DAY active Not Available Not Available No t Available Vitals Date Recorded Body height Body mass index (BMI) Body weight Body temperature Respiratory rate Heart rate Oxygen saturation Systolic And Diastolic Provider Name and Address Organization Details Last Updated DateTime 160.02 cm 36.7 kg/m2 99278.6 2 g 97.4 [degF] 18 /min 80 /min 99 % 108/80 mm[Hg] JESUS CRUZ NP [address] [facility],[address], [place], [address]MD [facility] 09:52:20 Social History None recorded. Functional Status None recorded. Mental Status None recorded. Family History Relationship Description Onset Age of this Age Resolved Age Notes LastModified by Organization Details LastModified Time Mother Heart disease [email or web address] Not available 2024 07:46:41 Father Heart disease Not available 2024 07:46:41 Notes:Breast cancer mother Medical History Condition Response Coronary Artery Disease N Heart Problems N Other Y Blood Diseases N Hospitalizations N Emphysema N Thyroid Problems N Lung Disease N COPD N Depression Y Incontinence N Skin Problems N Anemia N Edema N Heart Attack ([place]) N Deep Vein Thrombosis N Diabetes N Anxiety Disorder Y Seizures/Epilepsy N Arthritis N Tuberculosis N AIDS/HIV N Congestive Heart Failure (CHF) N Cancer N Stroke N Abuse/Domestic Violence N Dementia N Asthma N Bladder or Kidney Problems N Reflux/GERD Y High Cholesterol N Hepatitis N Nervous System Disorder N Liver Disease N Heart Disease N Hypertension N Osteoporosis N Autism Spectrum Disorder (ASD) N Kidney Disease N Gynecological HistoryNo gynecological history recorded. Obstetrics History GPAL:G 0 P 1 0 0 0 Type Value Full Term 1 Past Encounters Encounter ID Performer Location Encounter Start Date Encounter Closed Date Diagnosis/Indication Diagnosis SNOMED-CT Code Diagnosis ICD10 Code Diagnosis IMO Codes Diagnosis Note [id number] JESUS CRUZ NP [address] [place] [address] 02/10/2025 07:45:17 04/20/2025 17:33:32 Gastroesophageal reflux disease without esophagitis 135506297 K21.9 087242 Stable. Does not take any medication for this condition. No reproted worsening symptoms of GERD. Following with PCP. Advised sitting upright for 30 minutes to 1 hour after eating and limitation of spicy food. Bilateral tinnitus 64718 94668 102 H93.13 603491 Stable. Not current treatment, not worsening - member advised consultati on with ENT especially with persistent and worsening tinnitus Mixed anxi ety and depressive disorder 625249819 F41.9 F32.A 139612 Stable, not currently taking any medication for the condition, no reported worsening symptoms of depression or anxiety, following with PCP Attention deficit hyperactivity disorder 269557788 F90.9 [id number] Stable, no current treatment, no worsening symptom of ADHD reported, following with PCP Fibromyalgia 790654167 M 79.7 20037 Stable. Takes PRN Tylenol and Aspirin for pain. No worsening pain reported. Followed with Neurology in the past. Rico de la Tourette's syndrome 9081552 F95.2 390928 Stable. Not on any current treatment, denied worsening Tics symptoms; following with PCP. Costal chondritis 494688 04 M94.0 20164 Stable, but occasional cause dyspnea per patient report, has PRN Tylenol and Aspirin. Advised to discuss with PCP if symptoms persists or worsen. Following with PCP. Palpitations 00176221 R0 0.2 41481 Stable. Not on any treatment currently; had Holter Monitoring in High School, previously saw cardiologi ; recently had a visit with PCP and symptom was discussed - per member, PCP advised to keep an eye on the symptoms. Heart murmur 26877868 R0 1.1 41941 Stable. Please see above note on palpitatio n. Migraine 34346971 G43.90 9 [id number] Stable. Takes Tylenol and Aspirin PRN with relief, stays in dark room when having migraines; member reported having MRI of the Brain in the past, with no abnormalit y noted on the exam. Health Concerns Section Related Observation LastModified by Organization Detai ls LastModified Time None Recorded Concern Status LastModified by Organization Details LastModified Time None Recorded Advance Directives Directive None Recorded Payers Insurance Date Sequence Insurance Name Policy Number Policy [place] Covered Member ID [place] Member ID Guarantor Name 04/20/2025 1 [facility] Jessi Acevedo [id number] Jessi Acevedo Notes Date Note Type Note Provider Name and Address Organization Details Recorded Time 02/10/2025 text/html Member seen in home, single family home; no clutters noted in the house during the visit. JESUS CRUZ NP [address] [facility],[address], [facility] , [phone], - [facility] 02/10/2025 17:07:30 OBGyn Episode No OBEpisode recorded.
--- OUTSIDE RECORDS SUMMARY | 2025-05-28 00:34 | XMS_ITS | Encounter Summary ---
Author Organization [facility] Address [address] [place] [address] Phone Care Team Providers Care Diet Attendant Name Role Phone Meredith Wood NP Primary Care Provider [phone] Encounter Details Date Type Department Care Team (Late st Contact Info) Description 01/09/2017 Conversion Encounter [facility] - [address], [address] [place] [address] Meredith Wood NP [address] [place] [address] Social History Tobacco Use Types Packs/Day Years Used Date Smoking Tobacco: Never Assessed Comments Unknown Sex and Gender Information Value Date Recorded Sex Assigned at Not on file Legal Sex Female 9:54 AM EST Gender Identity Not on file Sexual Orientation Not on file documented as of this encounter Plan of Treatment Not on file documented as of this encounter Visit Diagnoses Not on filedocumented in this encounter Care Teams Diet Attendant Relationship Specialty Start Date End Date Meredith Wood NP [address] [place] [address] PCP - General 07/24/16 09/10/23 documented as of this encounter
--- OUTSIDE RECORDS SUMMARY | 2025-05-28 00:34 | XMS_ITS | Clinical Summary ---
Author Organization [facility] Address [address] [place] [address] Phone Care Team Providers Care Scenic Artist Name Role Phone Unavailable Primary Care Provider Unavailabl e Active Problems Patient Care Coordination No te Formatting of this note migh t be different from the original. 08/13/18 - [facility] #2 letter mailed, chart inactivated No additional problems on file Immunizations Immunization Administration Dates Next Due DTaP 05/31/1999, 7,1995,1995, 6 Hep B, ped/adol 02/10/1996,1995,1995 Hib (PRP-T) 07/30/1996,1995,1995 ,1995 IPV 05/31/1999 MMR 05/29/2000,07/30/1996 OPV 1995,1995,1995 Pneumococcal Conjugate 07/25/2000 Tdap 09/23/2007 Varicella 11/23/2010,04/28/1996 Family History Relation Name Status Comments Father Alive Father: High ch olesterol, Minor heart attack had a stent put in Maternal Grandfather Mat GFa ther: Heart related sudden (age 67) Maternal Grandmother Alive Mat GMo ther: High cholesterol Mother Mother: Breast cancer with 2013 mets to spine and ribs. Has had radiation and chemo and will be undergoing hormone treatment at [facility] Other 1 Alive Healthy but stephany y overweight Other 2 Alive High cholestero l Other 3 Alive High cholestero l Other 4 Alive High cholestero l, Minor heart attack had a stent put in Other 5 Breast cancer w ith 2013 mets to spine and ribs. Has had radiation and chemo and will be undergoing hormone treatment at [facility] Other 6 Heart related s udden (age 67) Paternal Grandfather Alive Pat GFa ther: High cholesterol Social History Tobacco Use Types Packs/Day Years Used Date Smoking Tobacco: Never Assessed Comments Unknown Sex and Gender Information Value Date Recorded Sex Assigned at Not on file Legal Sex Female 9:54 AM EST Gender Identity Not on file Sexual Orientation Not on file Last Filed Vital Signs Vital Sign Reading Time Taken Comments Blood Pressure 110/70 08/20/2014 12:00 AM EDT Pulse 78 05/06/2013 12:00 AM EST Temperature 37.3 C (99.2 F) 10/04/2015 12:00 AM EDT Respiratory Rate - - Oxygen Saturation 97% 02/28/2012 12:00 AM EDT Inhaled Oxygen Concentration - - Weight 79.9 kg (176 lb 3.1 oz) 12/20/2014 12:00 AM EDT Height 161.9 cm (5' 3.75 ) 08/20/2014 12:00 AM E DT Body Mass Index 30.48 08/20/2014 12:00 AM EDT Plan of Treatment Health Maintenance Due Date Last Done Comments DTaP,Tdap,and Td Vaccines (7 - Td or Tdap) 09/22/2017 09/23/2007, 05/31/1999, 10/29/1996, Additional history exists HPV Vaccines (1 - 3-dose SCDM series) 2022 Influenza Vaccines (#1) 2025 COVID-19 Vaccine ( - 2024- season) 2025 Hepatitis B Vaccines Completed 02/10/1996, 1995, 1995 HIB Vaccines Completed 07/30/1996, 11/1995, 1995, Additional history exists IPV Vaccines Completed 05/31/1999, 11/1995, 1995, Additional history exists MMR Vaccines Completed 05/29/2000, 07/30/1996 Pneumococcal Vaccine Aged Out 07/25/2000 No long er eligible based on patient's age to complete this topic Varicella Vaccines Completed 11/23/2010, 04/28/1996 Hepatitis A Vaccines Aged Out No long er eligible based on patient's age to complete this topic Men B Vaccine Aged Out No longer elig ible based on patient's age to complete this topic Meningococcal Vaccine Aged Out No arian john eligible based on patient's age to complete this topic Procedures * Due to [place] Whistlest[employer] law, this organization might not be sharing sensitive test results. Procedure Name Priority Date/Time Associated Diagnosis Comments CHLAMYDIA DNA PROBE, DIRECT Routine 08/25/2014 12:00 AM EDT from Last 3 Months or Most Recently Relevant to Health Maintenance Results * Due to [place] state law, this organization might not be sharing sensitive test results. * Chlamydia DNA probe, direct (08/25/2014 12:00 AM EDT) CHLAMYDIA TRACHOMATIS AMPLIFIED RNA Negative CONVERTED LABS Comment: Rex Loredo 08/20/2014 10:53:53 AM > , Urine sample labeled and sent to [facility] Rex Loredo 08/25/2014 03:21:40 PM > Negative Reason: Received -[facility] Lab Order Air Hoist Operator Chlamydia trachomatis amplified RNA(Conversion) Negative CONVERTED LABS Comment: Rex Loredo 08/20/2014 10:53:53 AM > , Urine sample labeled and sent to [facility] Rex Loredo 08/25/2014 03:21:40 PM > Negative Reason: Received -[facility] Lab Order Air Hoist Operator CHLAMYDIA SOURCE URINE CON VERTED LABS Comment: Rex Loredo 08/20/2014 10:53:53 AM > , Urine sample labeled and sent to [facility] Rex Loredo 08/25/2014 03:21:40 PM > Negative Reason: Received -[facility] Lab Order Air Hoist Operator 08/25/2014 Narrative CONVERTED LABS - 08/25/2014 12:00 AM EDT Chlamydia DNA Probe Meredith Wood NP LAB MICROBIOLOGY - GENERAL OR DERABLES Final Result CONVERTED LABS from Last 3 Months or Most Recently Relevant to Health Maintenance
--- OUTSIDE RECORDS SUMMARY | 2025-05-28 00:34 | XMS_ITS | Encounter Summary ---
Author Organization [facility] Address [address] [place] [address] Phone Care Team Providers Care Furniture Cleaner Name Role Phone Campbell Eddy MD Primary Care Provider [phone] Campbell Eddy MD Unavailable Tyrone Scott MD Unavailable [phone] Encounter Details Date Type Department Care Team (Latest Contact Info) Description 05/05/2020 Transcribe Orders Virtual Department [address] [place] [address] Jaya Vang MD [address] [place] [address] [phone] [email or web address] Pre-operative laboratory examination (Primary Dx) Social History Tobacco Use Types Packs/Day Years Used Date Smoking Tobacco: Never Smokeless Tobacco: Never Comments Unknown Sex and Gender Information Value [...] AM EST Appointment [facility] [address] [place] [address] Paz Ruano PA [address] [place] [address] documented as of this encounter Results * COVID-19 PCR Order (05/08/2020 7:55 AM EST) COVID-19 Comment [id number] [facility] COVID Testing Status Sent to [facility] Other 05/08/2020 7:55 AM EST 05/08/2020 12:36 PM EST us Jaya Vang MD LAB GENERAL ORDERABLES Edite d Result - Final [facility] [address] [place] [address] documented in this encounter Visit Diagnoses Diagnosis Pre-operative laboratory examination- Primary Pre-procedural laboratory examination documented in this encounter Additional Health Concerns Infection Onset Date Last Indicated Resolved Time CoV-Exposed Comment:Recent close contact documented in the Travel/Symptom Screening Form 09/06/2021 09/06/2021 09/17/2021 1:22 AM E DT documented as of this encounter Care Teams Furniture Cleaner Relationship Specialty Start Date End Date Campbell Eddy MD [address] [place] [phone] [email or web address] PCP - General 03/19/17 Campbell Eddy MD [address] [place] [address] [email or web address] Insurance Assigned Provider 01/06/22 Tyroen Scott MD [address] [place] [address] [email or web address] Insurance Assigned Provider 04/17/25 documented as of this encounter Additional Source Comments The information contained in this document represents components of the legal health record. It is not the complete legal health record.[facility]
--- NOTE | 2025-05-28 01:00 | ED_ITS ---
HPI - Nausea/Vomiting/Diarrhea General Chief complaint: Nausea/Vomiting/Diarrhea Stated complaint: food poisoning? Time Seen by Provider: 05/28/25 00:47 History of Present Illness ED Provider: luis carlos HPI Narrative: 30 F with n/v/d x hours. 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 Head: Atraumatic Eyes: Anicteric, Normal conjunctiva. ENT: Moist mucosa, no pallor. Neck: Supple. Respiratory: Breathing comfortably, No distress.Clear to auscultation bilaterally, symmetric chest expansion, No wheeze, rales, ronchi. Cardiovascular: Regular rate and rhythm. No murmurs or rub. Well perfused periphery, warm extremities. No edema. Abdominal: Soft, no objective distension. No palpable masses or obvious organomegaly. No focal tenderness, no guarding, no rebound tenderness or other peritoneal findings. : No flank tenderness. Neuro: Alert. Gross movement of all extremities intact. Vital signs: See flowsheet Vital Signs: Vital Signs: Last Vital Signs Temp 98.3 F 05/28/25 07:06 Pulse 110 H 05/28/25 07:06 Resp 18 05/28/25 07:06 BP 92/52 L 05/28/25 07:06 Pulse Ox 98 05/28/25 07:06 O2 Del Method Room Air 05/28/25 07:06 BMI result Body Mass Index 36.4 Course Course Course Narrative: 6:25 AM 05/28/2025 (Dr. Nikki Maers, D.O.) patient developed another episode of vomiting. Given a dose of Compazine with good effect. She is now able to tolerate oral intake although she developed diarrhea. Discussed importance of continuing oral hydration as well as strict return precautions. Patient will be discharged home to follow up with primary care. Discharged in stable condition. Medications Administered Discontinued Medications Generic Name Dose Route Start Last Admin Trade Name Freq PRN Reason Stop Dose Admin Famotidine 20 mg 05/28/25 01:01 05/28/25 01:53 Famotidine/Pf 20 Mg/2 Ml Vial IVPUSH 05/28/25 01:02 20 mg ONCE ONE Administration Lactated Ringer's 1,000 mls @ 999 mls/hr 05/28/25 01:15 05/28/25 04:19 Lr IV 05/28/25 03:15 Infused .Q1H1M FAWN Infusion Ondansetron HCl 4 mg 05/28/25 01:01 05/28/25 01:53 Ondansetron Hcl 4 Mg/2 Ml Vial IVPUSH 05/28/25 01:02 4 mg ONCE ONE Administration Prochlorperazine Edisylate 10 mg 05/28/25 05:08 05/28/25 05:33 Prochlorperazine Edisylate 10 Mg/2 Ml Vial IVPUSH 05/28/25 05:09 10 mg ONCE ONE Administration Medical Decision Making Medical Decision Making MDM Narrative: 30-year-old female with acute, abrupt GI symptoms: nausea, vomiting, diarrhea (without bleeding). No focal abdominal tenderness suggestive of appendicitis or biliary colic or other acute surgical emergency. Imperative plan for hydration, antemedics, lab work, and reassess. Lab Data 05/28/25 00:36 05/28/25 00:36 Labs: Lab Results 05/28/25 Range/Units 00:36 WBC 8.2 (4.8-10.8) X10*3/uL RBC 5.11 (4.20-5.50) X10*6/uL Hgb 14.2 (12.0-16.0) g/dl Hct 42.5 (37.0-47.0) % MCV 83.2 (80.0-98.0) fL MCH 27.8 (27.0-33.0) pg MCHC 33.4 (31.0-35.0) g/dl RDW 13.9 (11.0-16.0) % Plt Count 270 (160-400) X10*3/uL MPV 9.5 (9.4-12.3) fL Immature Gran % (Auto) 0.1 (0.0-0.4) % Neut % (Auto) 90.7 H (45-73) % Lymph % (Auto) 5.6 L (20-40) % Addison % (Auto) 3.1 (2-11) % Eos % (Auto) 0.4 (0-4) % Baso % (Auto) 0.1 (0-2) % Lymph # (Auto) 0.5 L (1.2-4.9) X10*3/uL Addison # (Auto) 0.3 (0.1-1.2) X10*3/uL Eos # (Auto) 0.0 (0.0-0.4) X10*3/uL Baso # (Auto) 0.0 (0.0-0.2) X10*3/uL Abs Immat Gran (auto) 0.01 (0.00-0.03) X10*3/uL Absolute Neuts (auto) 7.4 (2.0-8.3) x10*3/uL Absolute Nucleated RBC 0.000 (0.0-0.012) X10*3/uL Nucleated RBC % (auto) 0.0 (0.0-0.2) /100WBC Smear Tech's Comments VERIFIED Sodium 139 (135-145) mmol/L Potassium 3.9 (3.3-5.1) mmol/L Chloride 110 H (96-108) mmol/L Carbon Dioxide 19 L (22-29) mmol/L Anion Gap 14 (12-20) BUN 16 (9-16) mg/dL Creatinine 0.71 (0.5-1.4) mg/dL Estim Creat Clear Calc 125.5 Estimated GFR > 60 Random Glucose 118 H (60-115) mg/dL Calcium 8.7 (8.4-10.2) mg/dL Magnesium 1.8 (1.6-2.6) mg/dL Total Bilirubin 1.2 H (0.0-1.0) mg/dL AST 25 (5-31) U/L ALT 10 (0-31) U/L Alkaline Phosphatase 82 (39-117) U/L Total Protein 7.1 (6.5-8.0) g/dL Albumin 4.3 (3.5-5.0) g/dL Discharge Plan Discharge Clinical Impression: Dehydration Patient Disposition: Home, Self-Care Instructions: Dehydration (DC) Additional Instructions: _ DISCHARGE DIAGNOSES: Nausea and vomiting and diarrhea unclear cause possibly viral syndrome HISTORY OF PRESENTATION: ?Nausea vomiting diarrhea EMERGENCY DEPARTMENT COURSE,TESTS, TREATMENTS: While in the ED today lab work was performed which was normal and reassuring DISCHARGE MEDICATIONS: ?[We have made no changes to your regular medication regimen] we have added on a nausea medicine to be taken as needed FOLLOW-UP: ?Call your primary or general physician soon as possible to discuss your symptoms, your ED visit and to discuss follow up plans Call your primary doctor follow up INSTRUCTIONS ?& RETURN PRECAUTIONS: If any symptoms change first call your primary physician, if it is after-hours your primary doctors office should have a provider compensation programs manager you can speak with. If the symptoms are severe or very concerning to you then call 911 or return to the ED. Many viruses or food-borne illnesses can last up to several days of nausea vomiting decreased oral intake and diarrhea. Try your best to keep your body hydrated. Adolfo La MD Emergency Physician [facility] Prescriptions: New ondansetron 4 mg tablet,disintegrating 4 mg PO Q8H PRN (Reason: nausea and vomiting) Qty: 7 0RF No Action ibuprofen 600 mg tablet 600 mg PO Q6H PRN (Reason: fever or pain) Qty: 30 0RF prednisone 20 mg tablet 40 mg PO DAILY 7 Days Qty: 14 0RF Interventions: ED Discharge Assessment Last Done: 05/28/25 07:06 Discharge Date/Time: 05/28/25 07:07 Print Language: Frisian
[2025-05-28 01:48] LABS: Hematocrit 42.5 % (37.0-47.0); Hemoglobin 14.2 g/dl (12.0-16.0); Imm Gran Abs Auto 0.01 X10*3/uL (0.00-0.03); Imm Gran Pct Auto 0.1 % (0.0-0.4); Lymphocytes Absolute Auto 0.5 X10*3/uL (1.2-4.9); MANUAL DIFF FLAG SCAN; Mean Corpuscular HGB Conc 33.4 g/dl (31.0-35.0); Mean Corpuscular Hemoglobin 27.8 pg (27.0-33.0); Mean Corpuscular Volume 83.2 fL (80.0-98.0); NRBC Abs Auto 0.000 X10*3/uL (0.0-0.012); NRBC Pct Auto 0.0 /100WBC (0.0-0.2); Platelet Count 270 X10*3/uL (160-400); Red Blood Count 5.11 X10*6/uL (4.20-5.50); SCAN SMEAR FLAG 1; White Blood Count 8.2 X10*3/uL (4.8-10.8)
[2025-05-28] MEDS: Lactated Ringers 1,000 ML 999 ML IV ×2 (01:53→02:39)
[2025-05-28 01:56] LABS: Alanine Aminotransferase 10 U/L (0-31); Albumin Level 4.3 g/dL (3.5-5.0); Alkaline Phosphatase 82 U/L (39-117); Anion Gap 14 (12-20); Aspartate Amino Transferase 25 U/L (5-31); Blood Urea Nitrogen 16 mg/dL (9-16); Calcium 8.7 mg/dL (8.4-10.2); Carbon Dioxide 19 mmol/L (22-29); Chloride 110 mmol/L (96-108); Creatinine Clr Calc Pharmacy 125.5; Estimated Glomerular Filt Rate > 60; Magnesium 1.8 mg/dL (1.6-2.6); Potassium 3.9 mmol/L (3.3-5.1); Sodium 139 mmol/L (135-145); Total Protein 7.1 g/dL (6.5-8.0)
[2025-05-28 05:31] VITALS: BP 92/52; PULSE 110; RESP 18; O2SAT 98
[2025-05-28 07:06] VITALS: BP 92/52; PULSE 110; RESP 18; TEMP 36.8; O2SAT 98
== END 2025-05-28 07:07 | disposition home or self-care (01) ==
PROVIDERS: Emergency Medicine; Emergency Provider Emergency Medicine; PCP Student in an Organized Health Care Education/Training Program
DX: R11.2 Nausea with vomiting, unspecified (principal); E86.0 Dehydration; R19.7 Diarrhea, unspecified
CPT/HCPCS: 36415; 80053; 83735; 85025; 96361; 96374; 96375; 99284; J0737; J1308; J2405; J7120